=== PATIENT | male | born 1960 | race Caucasian/White ===

== ENCOUNTER 2016-11-29 16:37 | Emergency (ER) | payer SELFPAY ==
[~2016-11-29] VITALS: Ht 175.3 cm; Wt 69.4 kg
[2016-11-29] MEDS ORDERED: PROAIR HFA8.5 GM IH (17:56)
[2016-11-29] MEDS ORDERED: NORVASC10 MG PO (17:57)
[2016-11-29] MEDS ORDERED: CARVEDILOL6.25 MG PO (17:57)
[2016-11-29] MEDS ORDERED: HALDOL2 MG PO (17:58)
[2016-11-29] MEDS ORDERED: LOSARTAN POTAS100 MG PO (17:58)
[2016-11-29] MEDS ORDERED: OLANZAPINE20 MG PO (17:59)
[2016-11-29] MEDS ORDERED: NICODERM CQ1 EAC2 TD (17:59)
[2016-11-29] MEDS ORDERED: PHENYTOIN50 MG PO (18:00)
[2016-11-29] MEDS ORDERED: SENOKOT,SENN1 TABLET PO (18:00)
[2016-11-29] MEDS ORDERED: TAMSULOSIN HCL0.4 MG PO (18:01)
[2016-11-29 19:58] VITALS: BP 131/93
== END 2016-11-29 19:59 | disposition home or self-care (01) ==
LOC: EME 16:37
DX: S05.12XA Contusion of eyeball and orbital tissues, left eye, initial encounter (principal); W01.190A Fall on same level from slipping, tripping and stumbling with subsequent striking against furniture, initial encounter; Y92.129 Unspecified place in nursing home as the place of occurrence of the external cause; I10 Essential (primary) hypertension; F20.9 Schizophrenia, unspecified; Z87.891 Personal history of nicotine dependence
CPT/HCPCS: 70450; 70486; 99281; 99283

== ENCOUNTER 2017-12-25 15:26 | Inpatient (IN) | payer OTHER ==
[~2017-12-25] VITALS: Ht 180.3 cm; Wt 77.4 kg
[~2017-12-25 15:26] MED LIST: CARVEDILOL25 MG PO; HALDOL2 MG PO; LOSARTAN POTAS100 MG PO; NICODERM CQ1 EAC2 TD; NORVASC10 MG PO; OLANZAPINE20 MG PO; PHENYTOIN50 MG PO; PROAIR HFA8.5 GM IH; SENOKOT,SENN1 TABLET PO; TAMSULOSIN HCL0.4 MG PO
[2017-12-25 16:09] LABS: HEMATOCRIT 33.7 % (38.0-50.0); HEMOGLOBIN 12.4 G/DL (12.5-16.6); MCHC 36.8 G/DL (30.0-36.0); MCV 89.6 FL (86-99); PLATELET COUNT 208 K/uL (156-360); RBC DIS.WIDTH-CV 12.2 % (11.8-14.6); RBC DIS.WIDTH-SD 40.4 % (39-53); RED BLOOD COUNT 3.76 M/uL (4.00-5.50); WHITE BLOOD COUNT 4.5 K/uL (4.1-10.2)
[2017-12-25 16:19] LABS: CHLORIDE 95 mEq/L (99-109); SODIUM 128 mEq/L (136-147)
[2017-12-25 16:21] LABS: GLUCOSE 74 mg/dL (70-99)
[2017-12-25 16:24] LABS: GFR ESTIMATE (CALCULATED) > 59 mL/min/ (58.99-99999)
[2017-12-25 16:25] LABS: UREA NITROGEN (BUN) 16 mg/dL (9-23)
[2017-12-25 16:57] LABS: VALPROIC ACID (DEPAKOTE) 56.2 MCG/ML (50-100)
[2017-12-25 17:01] LABS: PLAT.SUFFICIENCY ADEQUATE; PLATELET CLUMPS PRESENT - PLATELET COUNT APPEARS ADQ.; POIKILOCYTOSIS 1+
[2017-12-25 17:02] LABS: ABS NEUTROPHIL COUNT 2.9; ATYPICAL LYMPHOCYTE 1.8 %; EOSINOPHIL ABS CT 0; LYMPHOCYTES 22.1 % (15.0-45.0); MONOCYTES 12.4 % (0-9.0); SEG.NEUTROPHILS 63.7 % (46.0-76.0)
[2017-12-25] MEDS ORDERED: VITAMIN B-12500 MC5 SL (22:53)
[2017-12-25] MEDS ORDERED: RANITIDINE HCL150 MG PO (22:53)
[2017-12-25] MEDS ORDERED: SODIUM CHLORIDE1 G1 PO (22:54)
[2017-12-25] MEDS ORDERED: NAMENDA10 MG PO (22:54)
[2017-12-25] MEDS ORDERED: COMBIVENT RESPIM4 GM IH (22:55)
[2017-12-25] MEDS ORDERED: DEPAKENE250 MG/5 M PO (22:55)
[2017-12-25] MEDS ORDERED: FUROSEMIDE20 MG PO (22:56)
[2017-12-25] MEDS ORDERED: THORAZINE50 MG PO (22:56)
[2017-12-25] MEDS ORDERED: ZYPREXA ZYDIS 110 MG PO (22:57)
[2017-12-25] MEDS ORDERED: ATORVASTATIN CA20 MG PO (22:57)
[2017-12-26] VITALS: BP 153/82
[2017-12-26 05:08] LABS: APPEARANCE CLEAR ((CLEAR)); BILIRUBIN NEGATIVE; BLOOD NEGATIVE; COLOR YELLOW ((YELLOW)); GLUCOSE (STRIP) NEGATIVE; KETONES NEGATIVE; LEUKOCYTES NEGATIVE; NITRITE NEGATIVE; PROTEIN (STRIP) NEGATIVE; SPECIFIC GRAVITY 1.008 (1.000-1.030); UROBILINOGEN 0.2 MG/DL (0.2-1.0)
[2017-12-26 08:26] VITALS: BP 133/87
[2017-12-26 09:11] LABS: HEMATOCRIT 37.5 % (38.0-50.0); HEMOGLOBIN 13.2 G/DL (12.5-16.6); MCH 32.4 PG (29.0-34.0); MCHC 35.2 G/DL (30.0-36.0); MCV 92.1 FL (86-99); PLATELET COUNT 208 K/uL (156-360); RBC DIS.WIDTH-CV 12.4 % (11.8-14.6); RED BLOOD COUNT 4.07 M/uL (4.00-5.50); WHITE BLOOD COUNT 4.2 K/uL (4.1-10.2)
[2017-12-26 09:34] LABS: ALBUMIN 4.6 G/DL (3.2-4.8); ALKALINE PHOSPHATASE 53 IU/L (3-129); ALT (GPT) 17 IU/L (3-49); AST (GOT) 24 IU/L (2-34); CHLORIDE 98 MEQ/L (99-109); CREATININE 0.7 MG/DL (0.6-1.3); GFR ESTIMATE (CALCULATED) > 59 mL/min/ (58.99-99999); POTASSIUM 3.8 MEQ/L (3.7-5.4); SODIUM 129 MEQ/L (136-147); TOTAL BILIRUBIN 1.5 MG/DL (0.0-1.0); TOTAL PROTEIN 6.9 G/DL (6.4-8.3); UREA NITROGEN (BUN) 9 mg/dL (9-23)
[2017-12-26 09:40] LABS: GLUCOSE 152 mg/dL (70-99)
[2017-12-26 15:42] VITALS: BP 170/74
[2017-12-27 00:48] VITALS: BP 112/74
[2017-12-27 06:51] LABS: CHLORIDE 100 MEQ/L (99-109); CREATININE 0.8 MG/DL (0.6-1.3); GFR ESTIMATE (CALCULATED) > 59 mL/min/ (58.99-99999); UREA NITROGEN (BUN) 10 mg/dL (9-23)
[2017-12-27 06:59] LABS: GLUCOSE 90 mg/dL (70-99); SODIUM 136 MEQ/L (136-147)
[2017-12-27 07:03] VITALS: BP 127/84
[2017-12-27 15:32] VITALS: BP 119/79
[2017-12-28 00:28] VITALS: BP 117/74
[2017-12-28 05:56] LABS: CHLORIDE 100 MEQ/L (99-109); CREATININE 0.7 MG/DL (0.6-1.3); GFR ESTIMATE (CALCULATED) > 59 mL/min/ (58.99-99999); GLUCOSE 87 mg/dL (70-99); POTASSIUM 3.8 MEQ/L (3.7-5.4); SODIUM 132 MEQ/L (136-147); UREA NITROGEN (BUN) 11 mg/dL (9-23)
[2017-12-28 07:09] VITALS: BP 124/81
[2017-12-28 15:09] VITALS: BP 119/77
[2017-12-28 20:36] VITALS: BP 118/89
[2017-12-28 23:37] VITALS: BP 130/75
[2017-12-29 06:16] LABS: CHLORIDE 100 MEQ/L (99-109); CREATININE 0.9 MG/DL (0.6-1.3); GFR ESTIMATE (CALCULATED) > 59 mL/min/ (58.99-99999); GLUCOSE 92 mg/dL (70-99); POTASSIUM 4.2 MEQ/L (3.7-5.4); SODIUM 134 MEQ/L (136-147); UREA NITROGEN (BUN) 14 mg/dL (9-23)
[2017-12-29 07:51] VITALS: BP 102/69
== END 2017-12-29 13:05 | disposition home or self-care (01) | DRG 645 ==
LOC: EME 15:26 → EDOF 22:26 → 5SOUTH 22:26 → ENRESERV 22:28 → EDOF 12-26 00:06 → 5SOUTH 12-26 00:08
PROVIDERS: Emergency Medicine; Internal Medicine Nephrology; Nurse Practitioner Adult Health
DX: E22.2 Syndrome of inappropriate secretion of antidiuretic hormone (principal); R56.9 Unspecified convulsions; F20.9 Schizophrenia, unspecified; F78 Other intellectual disabilities; N40.1 Benign prostatic hyperplasia with lower urinary tract symptoms; R33.8 Other retention of urine; I10 Essential (primary) hypertension; F43.10 Post-traumatic stress disorder, unspecified; E78.5 Hyperlipidemia, unspecified; R63.1 Polydipsia; R32 Unspecified urinary incontinence; Z79.899 Other long term (current) drug therapy
CPT/HCPCS: 71045; 80048; 80053; 80164; 81003; 83935; 84295; 84300; 84550; 85025; 85027; 94640; 94799; 99281; 99285; J1650; J7030; Q0161